=== PATIENT | male | born 1950 | race Caucasian/White ===

== ENCOUNTER 2018-06-29 19:08 | Emergency (ER) | payer OTHER ==
[~2018-06-29] VITALS: Ht 172.7 cm; Wt 68.0 kg
== END 2018-06-29 19:30 | disposition left against medical advice (07) ==
LOC: ER 19:08
DX: Z53.21 Procedure and treatment not carried out due to patient leaving prior to being seen by health care provider (principal)

== ENCOUNTER 2018-08-05 13:51 | Emergency (ER) | payer MEDICARE, OTHER ==
[~2018-08-05] VITALS: Ht 172.7 cm; Wt 63.5 kg
[2018-08-05] MEDS ORDERED: DIVA500EC PO ×2 (14:10)
[2018-08-05] MEDS ORDERED: ERGO400 PO (14:10)
[2018-08-05] MEDS ORDERED: BISA5EC PO (20:14)
== END 2018-08-05 14:39 | disposition left against medical advice (07) ==
LOC: ER 13:51
DX: Z53.21 Procedure and treatment not carried out due to patient leaving prior to being seen by health care provider (principal)

== ENCOUNTER 2018-08-05 17:15 | Emergency (ER) | payer MEDICARE, OTHER ==
[~2018-08-05] VITALS: Ht 172.7 cm; Wt 63.0 kg
[~2018-08-05 17:15] MED LIST: DIVA500EC PO; ERGO400 PO
[2018-08-05 18:45] LABS: BASOPHILS ABSOLUTE AUTO 0.04 K/mm3 (0.00-0.23); BASOPHILS PERCENT AUTO 1 % (0-2); EOSINOPHILS ABSOLUTE AUTO 0.03 K/mm3 (0.00-0.68); EOSINOPHILS PERCENT AUTO 1 % (0-6); Hematocrit 43.5 % (37.0-53.0); Hemoglobin 14.2 g/dL (13.5-17.5); IMMATURE GRAN ABSOLUTE AUTO 0.03 K/mm3 (0.00-0.10); IMMATURE GRAN PERCENT AUTO 1 % (0-1); LYMPHOCYTES ABSOLUTE AUTO 2.72 K/mm3 (0.84-5.20); LYMPHOCYTES PERCENT AUTO 41 % (21-46); MONOCYTES PERCENT AUTO 11 % (4-13); Mean Corpuscular HGB Conc 32.6 g/dL (31.5-36.5); Mean Corpuscular Volume 104 fL (80-100); Mean Platelet Volume 10.5 fL (9.1-12.4); NEUTROPHILS ABSOLUTE AUTO 3.14 K/mm3 (1.96-9.15); NEUTROPHILS PERCENT AUTO 47 % (41-73); Platelet Count 188 K/mm3 (150-400); RDW Coefficient Variation 13.1 % (11.7-14.2); RDW Standard Deviation 50.8 fL (35.1-46.3); Red Blood Cell Count 4.18 M/mm3 (4.30-5.90); White Blood Cell Count 6.66 K/mm3 (4.00-11.30)
[2018-08-05 20:01] LABS: Alanine Aminotransfer (ALT/SGP 37 U/L (12-78); Albumin, Blood 3.7 g/dL (3.4-5.0); Albumin/Globulin Ratio 1.1 (0.8-1.8); Alk Phos 63 U/L (50-136); Anion Gap 8 mmol/L (6-16); Aspartate Aminotrans (AST/SGOT 25 U/L (12-37); Bilirubin, Total 0.4 mg/dL (0.1-1.0); Blood Urea Nitrogen 24 mg/dL (8-24); Bun/Creatinine Ratio 26.5 (12.0-20.0); CO2, Blood 25 mmol/L (21-32); Chloride, Blood 106 mmol/L (98-108); Creatinine, Blood 0.91 mg/dL (0.60-1.20); Globulin, Blood 3.5 g/dL (2.2-4.0); Glomerular Filtration Rate >60 (60-); Glucose, Blood 139 mg/dL (70-99); Potassium, Blood 4.4 mmol/L (3.5-5.5); Sodium, Blood 139 mmol/L (136-145); Total Protein, Blood 7.2 g/dL (6.4-8.2); Valproic Acid 94.3 ug/mL (50.0-100.0)
[2018-08-05] MEDS ORDERED: BISA5EC PO (20:14)
== END 2018-08-05 21:25 | disposition home or self-care (01) ==
LOC: ER 17:15
PROVIDERS: Physician Assistant
DX: G40.909 Epilepsy, unspecified, not intractable, without status epilepticus (principal); Z79.899 Other long term (current) drug therapy; F17.210 Nicotine dependence, cigarettes, uncomplicated
CPT/HCPCS: 36415; 80053; 80164; 85025; 99285

== ENCOUNTER 2018-11-15 23:32 | Inpatient (IN) | payer OTHER, MEDICARE ==
[~2018-11-15] VITALS: Ht 177.8 cm; Wt 67.7 kg
[~2018-11-15 23:32] MED LIST changes: +BISA5EC PO
[2018-11-16] MEDS ORDERED: CITA10S (00:46)
[2018-11-16] MEDS ORDERED: ALBU90OI6 INH (00:46)
[2018-11-16] MEDS ORDERED: DIVA500EC PO (00:47)
[2018-11-16] MEDS ORDERED: ONDA4ODT (00:48)
[2018-11-16] MEDS ORDERED: LORA2 PO (00:48)
--- NOTE | 2018-11-16 04:45 | NUR ---
ASSUMED CARE RECEIVE REPORT FROM SOURAV OROZCO, FROM ER. PT ARRIVE TO ICU VIA STRETCHER WITH BAG OF BELONGINGS, ARMIJO, AND CENTRAL LINE. PT WAS INITIALLY ASLEEP BUT UPON STIMULATION HAS BECAME AGITATED AND HAS BEEN THRASHING AROUND. PT IS NOT RESPONSIVE TO VERBAL STIMULI AND DOES NOT FOLLOW COMMANDS. HE WILL LOCALIZE TO PAIN. PT PLACED IN [facility] RESTRAITNS AT 0430. PT IS NOW SETTLED INTO ICU BED.
[2018-11-16 05:50] LABS: Source, Urine Catheter
[2018-11-16 05:52] LABS: Bilirubin, Urine Neg (Neg); Blood, Urine Neg (Neg); Glucose Qualitative, Urine Neg (Neg); Ketones, Urine 1+ (Neg); Leukocyte Esterase, Urine Neg (Neg); Nitrite, Urine Neg (Neg); Protein, Urine 1+ (Neg); Specific Gravity, Urine 1.005 (1.003-1.022); Urobilinogen, Urine NORM (Normal)
[2018-11-16 06:14] LABS: Appearance, Urine Clear (Clear); Color, Urine Yellow (P-Yellow); U Amphetamine Screen Not Detected; U Barbituate Screen Not Detected; U Benzodiazapine Screen DETECTED; U Buprenorphine Screen Not Detected; U Cannabinoids Screen DETECTED; U Cocaine Screen Not Detected; U Methadone Screen Not Detected; U Methamphetamine Screen Not Detected; U Opiates Screen Not Detected; U Oxycodone Screen Not Detected; U Phencyclidine Screen Not Detected; U Propoxyphene Screen Not Detected
--- NOTE | 2018-11-16 06:45 | NUR ---
UPDATE PT HAS BEEN HYPOTENSIVE. JUAN SAW PT AND HAS PUT IN ORDERS. 2ND LITER SALINE BOLUS INUSING NOW, AND LEVOPHED STARTED AT 3MCG/MIN. MAP > 65. PT IS CURRENTLY ASLEEP AND SNORING, SATING LOW 90'S, OCCASIONAL DROP INTO THE HIGH 80'S. WHEN AWAKE HE MAKES NOISES, BUT NO CLEAR WORDS, AND THRASHES CONSTANTLY. NARCAN WAS GIVEN EARLIER IN NIGHT, BUT SEEMED TO HAVE NO EFFECT. BLOOD PRESSURES HAVE BEEN BETTER (SEE VS).
--- NOTE | 2018-11-16 07:15 | NUR ---
START OF SHIFT NOTE: RECEIVED REPORT FROM GILBERTO MELENDEZ RN, ASSUMED CARE, PATIENT IS AWAKE AND RESTLESS BUT UNABLE TO FOLLOW COMMANDS AND ANSWER QUESTIONS, SPEECH IS GARBLED, CENTRAL LINE IN RIGHT NECK, LUNG SOUNDS TIGHT AND EXPIRATORY WHEEZES HEARD WITHOUT STETHOSCOPE, NSR WITH WPISODES OF SINUS BRADYCARDIA, BOWEL TONES PRESENT AND HYPOACTIVE, ARMIJO CATHETER IN PLACE AND DRAINING CLEAR YELLOW URINE, PATIENT IS IN RETRAINTS D/T PULLING ON LINES AND CORDS, MULTIPLE ANTIBIOTICS INFUSING, ALSO ON LEVOPHED DRIP AT 3, EKG DONE, PATIENT REPOSITIONED, CALL LIGHT IN REACH, WILL CONTINUE TO MONITOR.
[2018-11-16 07:50] LABS: Adenovirus Not Detected (NOT DETECT); Bordetella pertussis Not Detected (NOT DETECT); Chlamydophila pneumoniae Not Detected (NOT DETECT); Coronavirus 229E Not Detected (NOT DETECT); Coronavirus HKU1 Not Detected (NOT DETECT); Coronavirus NL63 Not Detected (NOT DETECT); Coronavirus OC43 Not Detected (NOT DETECT); Human Metapneumovirus Not Detected (NOT DETECT); Human Rhinovirus/Enterovirus Not Detected (NOT DETECT); Influenza A Not Detected (NOT DETECT); Influenza A/2009-H1 Not Detected (NOT DETECT); Influenza A/H1 Not Detected (NOT DETECT); Influenza A/H3 Not Detected (NOT DETECT); Influenza B Not Detected (NOT DETECT); Mycoplasma pneumoniae Not Detected (NOT DETECT); Parainfluenza Virus 1 Not Detected (NOT DETECT); Parainfluenza Virus 2 Not Detected (NOT DETECT); Parainfluenza Virus 3 Not Detected (NOT DETECT); Parainfluenza Virus 4 Not Detected (NOT DETECT); Respiratory Syncytial Virus Not Detected (NOT DETECT)
--- NOTE | 2018-11-16 07:50 | NUR ---
SHIFT SUMMARY PT MORE PURPOSEFUL AT END OF SHIFT RESPONDING (INCOMPREHENSIBLY, JUST SOUNDS) TO VERBAL STIMULI, HOWEVER, STILL DOES NOT FOLLOW ANY COMMANDS. NO OBSERVED SEIZURE ACTIVITY DURING SHIFT. PT IS MOVING ALL EXTREMETIES. CURRENT GTTPS: 2ND LITER OF NS BOLUS INFUSING, LEVOPHED AT 3MCG/MIN, AND ROCEPHIN PB. MAP'S STABLE, HR IS LABILE 40'S-70'S. SAT'S ARE IN 90'S, BUT EXTREEMLY DIMINISHED IN ALL LUNG BULLARD. DAY NURSE AWARE. ARMIJO PATENT AND HANGING TO GRAVITY; 500ML OUT DURING SHIFT; CLEAR YELLOW URINE. NO BM. SKIN OVERALL CDI; SLIGHT ABBRASION ON RIGHT UPPER EYE/EYEBROW. PT REMAINS IN SWB RESTRAINTS. BED LOW AND LOCKED.
--- NOTE | 2018-11-16 09:15 | NUR ---
DR. ZUNIGA WAS CALLED AND UPDATED ON PATIENT CONDITION, DR. COLON, PULMONOLOGY/LAB INSTRUCTOR CONSULTED, PATIENT CONTINUES ON LEVOPHED AT 2, BECOMES EXTREMELY RESTLESS AT TIMES, DR. ZUNIGA IN TO SEE PATIENT, DR. COLON UPDATED ON PATIENT CONDITION.
--- NOTE | 2018-11-16 11:56 | NUR ---
PATIENT CONTINUES TO SLEEP AND SNORE LOUDLY, WHEN REPOSITONED PATIENT AWAKENS BRIEFLY, COUGHS AND GOES BACK TO SLEEP, VSS, TEMP IS DOWN TO 97.3, CALL LIGHT IN REACH, WILL CONTINUE TO MONITOR.
--- NOTE | 2018-11-16 12:21 | NUR ---
FINN LYONS, SOLVENT PLANT OPERATOR WITH THE [facility], CALLED TO INQUIRE ABOUT PATIENT, SHE IS THE TERADATA DEVELOPER FOR THIS PATIENT, UPDATE WAS PROVIDED, SHE WILL BE IN THIS AFTERNOON TO SEE PATIENT.
--- NOTE | 2018-11-16 12:24 | NUR ---
SPOKE WITH MARIANO MITCHELL, RADIOLOGY, WILL POSSIBLY DO LP IN AM D/T LOVENOX ADMINISTRATION.
--- NOTE | 2018-11-16 14:10 | NUR ---
PATIENT DEVELOPED EPISODES OF EXTREME SINUS BRADICARDIA WITH HR DOWN TO 36, PRECEDEX TURNED OFF, DR. COLON NOTIFIED, NO NEW ORDERS RECEIVED, CALL LIGHT IN REACH, WILL CONTINUE TO MONITOR.
--- NOTE | 2018-11-16 14:28 | NUR ---
NICKY VALDEZ, PATIENT'S SUPERVISOR ROAD ADMINISTRATOR, HERE TO VISIT, LEFT HER PHONE NUMBER AND WILL FAX PATIENT'S ADVANCE DIRECTIVE TO BE ON FILE HERE.
--- NOTE | 2018-11-16 16:06 | NUR ---
PATIENT SLIGHTLY MORE AWAKE, ASKED TO HAVE ANKLE RESTRAINTS REMOVED, PATIENT PROMISED TO NOT TRY AND CLIMB OOB, ABX INFUSING, VSS, CALL LIGHT IN REACH, WILL CONTINUE TO MONITOR.
--- NOTE | 2018-11-16 16:12 | NUR ---
PATIENT IS SLOWLY WAKING UP, RESTLESS IN BED, WHEN ASKED WHAT HE WAS DOING, HE STATED "I AM MESSING THINGS UP", BOOSTED UP IN BED, AND REPOSITIONED FOR COMFORT, CALL LIGHT IN REACH, WILL CONTINUE TO MONITOR.
--- NOTE | 2018-11-16 17:47 | NUR ---
PATIENT BECAME AGITATED AND STARTED KICKING, LEG RESTRAINTS REAPPLIED, CALL LIGHT IN REACH, WILL CONTINUE TO MONITOR.
--- NOTE | 2018-11-16 17:53 | NUR ---
SHIFT SUMMARY NOTE: PATIENT GOES IN AND OUT OF SLEEPING AND WAKING MOMENTS, DURING WAKE MOMENTS HE IS MORE ALERT AND TALKATIVE, SPEECH LESS GARBLED, STILL HAS MOMENTS OF AGGRESSIVE BEHAVIOR AND AGITATION, PRECEDEX IS TURNED OFF AT THIS TIME, SO IS THE LEVOPHED, BOTH ARE ON STANDBY, VSS, HR OCCASIONALLY IN UPPER 30'S TO LOWER 40'S, AFEBRILE AT THIS TIME, DENIES PAIN, REPOSITIONED FREQUENTLY BUT CONTINUES TO MOVE TO LEFT SIDE, LUNG SOUNDS ARE LESS TIGHT, PATIENT WAS ABLE TO COUGH UP SOME THIN WHITE SECRETIONS EARLIER DURING THIS SHIFT, ARMIJO CATHETER IN PLACE, DRAINED ABOUT 3L OF CLEAR YELLOW URINE, PATIENT'S IT SYSTEMS ADMINISTRATOR FROM [place] [facility] STOPPED BY AND SAW PATIENT, ALSO OBTAINED ADVANCED DIRECTIVE FROM [place] SINCE PATIENT HAS NO FAMILY PER IT SYSTEMS ADMINISTRATOR, DR. COLON WAS CONSULTED, LP TO BE DONE IN AM, FOR DETAILS SEE SHIFT ASSESSMENT DOCUMENTATION AND NURSES NOTES, CALL LIGHT IN REACH, WILL CONTINUE TO MONITOR AND GIVE REPORT TO ONCOMING RIB BENDER.
--- NOTE | 2018-11-16 19:31 | NUR ---
[place] of Care: Patient sleeping, easily roused via verbal stimuli. Oriented to self, confused to time, place, reason for admission. Following simple commands, but slightly restless in bed when awake, attempting to place legs over side of bed. Four-point soft restraints in place, day shift RN reports patient frequently attempting to get out of bed. Cid cath patent and intact, draining clear yellow urine. Central line to rt IJ patent and intact, infusing TKO, NS @ 100ml/hr, and Abx without difficulty. Denies pain, discomfort, SOB, or dyspnea. VSS, O@- 98-100% on 2L/NC. Will continue to monitor for pain, comfort, safety. Will D/C restraints if indicated.
[2018-11-17 04:16] LABS: Hematocrit 32.8 % (37.0-53.0); Hemoglobin 10.9 g/dL (13.5-17.5); Mean Corpuscular HGB 34.2 pg (26.0-34.0); Mean Corpuscular HGB Conc 33.2 g/dL (31.5-36.5); Mean Corpuscular Volume 103 fL (80-100); Mean Platelet Volume 10.7 fL (9.1-12.4); Platelet Count 106 K/mm3 (150-400); RDW Coefficient Variation 12.7 % (11.7-14.2); RDW Standard Deviation 47.5 fL (35.1-46.3); Red Blood Cell Count 3.19 M/mm3 (4.30-5.90); White Blood Cell Count 5.94 K/mm3 (4.00-11.30)
[2018-11-17 04:32] LABS: International Normalized Ratio 1.15
[2018-11-17 04:39] LABS: Alanine Aminotransfer (ALT/SGP 11 U/L (12-78); Albumin, Blood 2.6 g/dL (3.4-5.0); Alk Phos 44 U/L (50-136); Anion Gap 6 mmol/L (6-16); Aspartate Aminotrans (AST/SGOT 25 U/L (12-37); Bilirubin, Total 0.4 mg/dL (0.1-1.0); Blood Urea Nitrogen 15 mg/dL (8-24); Bun/Creatinine Ratio 15.9 (12.0-20.0); CO2, Blood 25 mmol/L (21-32); Calcium, Blood 7.7 mg/dL (8.5-10.1); Chloride, Blood 115 mmol/L (98-108); Creatinine, Blood 0.95 mg/dL (0.60-1.20); Globulin, Blood 2.6 g/dL (2.2-4.0); Glomerular Filtration Rate >60 (60-); Glucose, Blood 72 mg/dL (70-99); Potassium, Blood 3.6 mmol/L (3.5-5.5); Sodium, Blood 146 mmol/L (136-145); Total Protein, Blood 5.2 g/dL (6.4-8.2)
[2018-11-17 04:57] LABS: BAND PERCENT MAN 6 % (0-8); BASOPHILS ABSOLUTE MAN 0.05 K/mm3 (0.00-0.23); BASOPHILS PERCENT MAN 1 % (0-2); EOSINOPHILS ABSOLUTE MAN 0.05 K/mm3 (0.00-0.68); EOSINOPHILS PERCENT MAN 1 % (0-6); LYMPHOCYTES ABSOLUTE MAN 1.48 K/mm3 (0.84-5.20); LYMPHOCYTES PERCENT MAN 25 % (21-46); MONOCYTES ABSOLUTE MAN 0.83 K/mm3 (0.16-1.47); MONOCYTES PERCENT MAN 14 % (4-13); SEG NEUTROPHILS PERCENT MAN 53 % (41-73); TOTAL CELLS COUNTED 100
--- NOTE | 2018-11-17 06:11 | NUR ---
Shift Summary: Patient slept for majority of shift. Precedex gtt turned on at approx 2100, titrated between 0.2-0.4mcg/kg/min, then placed on stand-by at approx 2300hr. Patient continues to be confused, but becoming less agitated/restless, and more cooperative with staff when awake. Bilateral wrist restraints remain in place r/t confusion, concern for pulling out central line to rt IJ, and/or getting out of bed. Levophed gtt turned on at approx 2230hr, titrated between 1-2mcg/min then placed on stand-by at approx 0300hr, VS/BP stable throughout remainder of shift. Central line to rt IJ remains patent and intact. Cid cath remains patent and intact, draining light yellow, clear urine. Patient adjusting own position in bed, but requires some assistance to get comfortable. Sleeping at this time. Will continue to monitor until report to day shift RN.
--- NOTE | 2018-11-17 07:15 | NUR ---
START OF SHIFT NOTE: RECEIVED REPORT FROM CARLO MACE RN, ASSUMED CARE, PATIENT IS AWKAE AND ASKED "CAN I GO NOW", ORIENTED TO SELF, KNOWS THAT HE IS IN THE HOSPITAL BUT DID NOT KNOW TOWN, CONTINUES TO BE IN BILATERAL WRIST RESTRAINTS D/T PULLING ON LINES AND CORDS, PATIENT HAS MOMENTS WHERE HE IS COMPLETELY ALERT AND THEN MOMENTS LATER HE IS COMPLETELY CONFUSED AGAIN, YELLING OUT AT TIMES, BUT WHEN ASKED WHAT IS NEEDED DOES NOT KNOW WHY, LUNG SOUNDS ARE DIMINISHED, DENIES PAIN, AFEBRILE, SINUS BRADICARDIA WITH HR IN 40'S TO 50'S, BOWEL TONES ARE PRESENT AND HYPOACTIVE, ARMIJO CATHETER WITH TEMP PROBE IN PLACE, DRAINING CLEAR YELLOW URINE, SKIN C/D/I, POSSIBLE LP TODAY, CALL LIGHT IN REACH, WILL CONTINUE TO MONITOR.
--- NOTE | 2018-11-17 07:20 | NUR ---
START OF SHIFT NOTE: RECEIVED REPORT FROM CARLO MACE, RN, ASSUMED CARE, PATIENT IS AWAKE, ALERT AND ORIENTED, WATCHING TV, ON HIFLO 4L NC, DENIES PAIN, AFEBRILE, RECEIVING BREATHING TREATMENT, RT IN TO DRAW ABG'S, DR. ADAMES IN TO SEE PATIENT, NEW ORDERS RECEIVED, PATIENT IS RESTING COMFORTABLY, LUNG SOUNDS DIMINISHED, ST WITH HR IN 90'S TO LOW 100'S, BLOOD PRESSURES SLIGHTLY ELEVATED IN 170'S, BOWEL TONES HYPOACTIVE, PATIENT REQUESTED MILK OF MAGNESIA WITH AM MEDS., ARMIJO CATHETER IN PLACE, DRAINING DARK YELLOW URINE, PATIENT WILL BE TRANSFERRED TO PCU 16 LATER THIS AM, CALL LIGHT IN REACH, WILL CONTINUE TO MONITOR.
--- NOTE | 2018-11-17 09:18 | NUR ---
DR. COLON IN TO SEE PATIENT, ORDERS RECEIVED TO REMOVE CENTRAL LINE AND START PIV'S, ALSO SEDATION ORDERED FOR PENDING LUMBAR PUNCTURE, CALLED RADIOLOGY, AND SPOKE WITH MARIANO MITCHELL ABOUT APPROXIMATE TIME FOR PROCEDURE, SHE STATED THAT IT WILL BE EITHER AT 1100 AM OR 2 PM, WILL KEEP ME UPDATED, PATIENT WAS NOTIFIED ABOUT PROCEDURE, BUT UNABLE TO GRASP SITUATION AT THIS TIME.
--- NOTE | 2018-11-17 09:23 | NUR ---
ATTEMPTED TO CALL RAHEEM BLUE, AT THE [facility], WHO TAKES CARE OF THE PATIENT, SHE WAS NOT AT HER DESK, LEFT A MESSAGE WITH PAOLO, WHO WILL NOTIFY HER TO CALL THIS RN.
--- NOTE | 2018-11-17 10:29 | NUR ---
PER CALL FROM RADIOLOGY, LUMBAR PUNCTURE WILL BE DONE AT 1400 HOURS TODAY.
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
--- NOTE | 2018-11-17 13:12 | NUR ---
PATIENT CONTINUES TO BE CONFUSED AND IS SHOUTING OUT, YELLING AT TIMES "GET ME OUT OF HERE", FORGETFUL ABOUT INSTRUCTIONS WHY HE IS HERE, MUSIC THERAPY HERE TO PLAY IN PATIENT ROOM.
--- NOTE | 2018-11-17 13:40 | NUR ---
PATIENT RECEIVED 2 MG ATIVAN IV TO PREPARE FOR LUMBAR PUNCTURE, PROCEDURE TO BE PERFORMED ABOUT 1400 HOURS.
--- NOTE | 2018-11-17 14:54 | NUR ---
PATIENT WAS TAKEN TO RADIOLOGY AT 1355 VIA BED AND ON HEART MONITOR, PATIENT HAD BEEN PRE-MEDICATED WITH 2 MG ATIVAN AND 50 MCG OF FENTANYL AND WAS CALM AND COOPERATIVE, ARRIVED AT RADIOLOGY, HARD RESTRAINTS WERE UNLOCKED FROM UPPER AND LOWER EXTREMITIES AND PATIENT WAS MOVED TO RADIOLOGY TABLE AND PLACED IN A PRONE POSITION, LUMBAR PUNCTURE WAS INITIATED, CONSENT WAS SIGNED BY TWO PHYSICIANS D/T PATIENT'S CONFUSION AND NO FAMILY AVAILABLE, PATIENT RECEIVED AN ADDITIONAL 4 MG OF ATIVAN IMMEDIATELY PRIOR TO PROCEDURE, PATIENT FELL ASLEEP AND WAS SNORING DURING PROCEDURE, AFTER LP WAS DONE, PATIENT WAS MOVED BACK TO HOSPITAL BED AND PLACED IN A SUPINE POSITIONE, HARD LOCKED RESTRAINTS WERE APPLIED TO ALL 4 EXTREMITIES, PATIENT RETURNED TO ROOM VIA BED AND PLACED ON MONITOR, POSITIONED FOR COMFORT, CALL LIGHT IN REACH, WILL CONTINUE TO MONITOR.
[2018-11-17 15:09] LABS: Glucose, CSF 38 mg/dL (40-70)
[2018-11-17 15:17] LABS: RBC Count, CSF 80 /mm3 (0-0); WBC Count, CSF 1 /mm3 (0-5)
[2018-11-17 15:18] LABS: Appearance, CSF Clear (Clear); Color, CSF No Color (No Color)
[2018-11-17 17:03] LABS: Lymphocytes, CSF 62 % (40-80); Monocytes, CSF 8 % (15-45); Neutrophils, CSF 30 % (0-6)
--- NOTE | 2018-11-17 17:57 | NUR ---
SHIFT SUMMARY NOTE: PATIENT CONTINUES TO BE CONFUSED AND EXTREMELY RESTLESS, NOW IN 4 POINT HARD RESTRAINTS D/T EXTREME COMBATIVENESS, AGITATION, STARTED KICKING NURSING PERSONNEL, CODE VASYL HAD TO BE CALLED, PATIENT RECEIVED MULTIPLE DOSES OF ATIVAN AND ONE DOSE OF FENTANYL, WAS TAKEN TO IMAGING FOR LUMBAR PUNCTURE, SUCCESSFUL, PATIENT WAS RETURNED TO ROOM, RECEIVED ZYPREXA IM FOR CONTINUOUS RESTLESSNESS, FOR DETAILS SEE SHIFT ASSESSMENT DOCUMENTATION AND NURSES NOTES, CALL LIGHT IN REACH, WILL CONTINUE TO MONITOR, AND GIVE REPORT TO ONCOMING EVAPORATOR HELPER.
--- NOTE | 2018-11-17 22:40 | NUR ---
[place] of Care: Care assumed at 1900hr. Patient sleeping, easily roused to verbal stimuli. Continues to be confused, and speaks incomprehensible sentenced. Some agitation when awake but able to re-direct. 4-point tuff-cuff restraints in place at shift change. Day shift RN reports patient was able to get out of soft restraints. Patient also continues to try to get out of bed when awake. High fall risk r/t confusion and weakness. Will continue to monitor and downgrade restraints as indicated. X1 peripheral IV to SHANNA, found to be infiltrated at shift change. Several attempts by multiple staff members to place new IV, but all new starts continually infiltrated. Patient currently has no IV access. Call placed to Dr. Ravi r/t to no IV access. Received orders/instructions to D/c several IV abx, LR, give depakote PO (if able), and continue to attempt peripheral IV access. Dr. Ravi does not wish to place another central line as it is not indicated for this patient. This nurse does not feel patient is alert/oriented enough to take PO medications at this time. Will continue to attempt peripheral IV access. Will continue to monitor for pain, safety, comfort.
[2018-11-18 03:23] LABS: BASOPHILS ABSOLUTE AUTO 0.03 K/mm3 (0.00-0.23); BASOPHILS PERCENT AUTO 1 % (0-2); EOSINOPHILS ABSOLUTE AUTO 0.04 K/mm3 (0.00-0.68); EOSINOPHILS PERCENT AUTO 1 % (0-6); Hematocrit 34.5 % (37.0-53.0); Hemoglobin 11.6 g/dL (13.5-17.5); IMMATURE GRAN ABSOLUTE AUTO 0.01 K/mm3 (0.00-0.10); IMMATURE GRAN PERCENT AUTO 0 % (0-1); LYMPHOCYTES PERCENT AUTO 35 % (21-46); MONOCYTES ABSOLUTE AUTO 0.57 K/mm3 (0.16-1.47); MONOCYTES PERCENT AUTO 13 % (4-13); Mean Corpuscular HGB 34.4 pg (26.0-34.0); Mean Corpuscular HGB Conc 33.6 g/dL (31.5-36.5); Mean Corpuscular Volume 102 fL (80-100); Mean Platelet Volume 10.7 fL (9.1-12.4); NEUTROPHILS PERCENT AUTO 50 % (41-73); Platelet Count 99 K/mm3 (150-400); RDW Coefficient Variation 12.4 % (11.7-14.2); RDW Standard Deviation 47.3 fL (35.1-46.3); Red Blood Cell Count 3.37 M/mm3 (4.30-5.90); White Blood Cell Count 4.25 K/mm3 (4.00-11.30)
[2018-11-18 03:41] LABS: Alanine Aminotransfer (ALT/SGP 17 U/L (12-78); Albumin, Blood 2.8 g/dL (3.4-5.0); Alk Phos 47 U/L (50-136); Anion Gap 7 mmol/L (6-16); Aspartate Aminotrans (AST/SGOT 26 U/L (12-37); Bilirubin, Total 0.5 mg/dL (0.1-1.0); Blood Urea Nitrogen 13 mg/dL (8-24); CO2, Blood 27 mmol/L (21-32); Calcium, Blood 8.2 mg/dL (8.5-10.1); Chloride, Blood 110 mmol/L (98-108); Creatinine, Blood 0.93 mg/dL (0.60-1.20); Globulin, Blood 2.9 g/dL (2.2-4.0); Glomerular Filtration Rate >60 (60-); Glucose, Blood 58 mg/dL (70-99); Potassium, Blood 3.3 mmol/L (3.5-5.5); Sodium, Blood 144 mmol/L (136-145); Total Protein, Blood 5.7 g/dL (6.4-8.2)
--- NOTE | 2018-11-18 06:14 | NUR ---
Shift Summary: Patient slept for majority of shift. Continues to be confused when awake. At times, calm and cooperative with staff, thankful for care provide. Patient also agitated at times, and attempting to climb out of bed. Unable to gain IV access this shift (see assumption note), Dr. Ravi made aware this morning. Plan for day shift staff to potentially place power-glide. Restraints changed from tuff-cuffs x4 to soft x4. Cid cath remains patent and intact, draining light yellow clear urine. Will continue to monitor until report to day shift RN.
--- NOTE | 2018-11-18 07:00 | NUR ---
REC'D BEDSIDE REPORT FROM ERNESTO MATOS AND NOW ASSUMING CARE OF PT.
--- NOTE | 2018-11-18 07:21 | NUR ---
AM ASSESSMENT: PT RESTING/CALM WHEN UNDSISTURBED, HOWEVER, HAS PERIODS WHERE PT WAKES UP FOR SHORT PERIODS OF TIME AND BECOMES RESTLESS AND PULLS ON CORDS DESPITE BILATERAL SOFT WRIST RESTRAINTS. ATIVAN USED ON NOC FOR RESTLESSNESS/AGGITATION. BILATERAL WRIST RESTRAINTS REMAIN IN PLACE FOR PT SAFETY. PT ORIENTED TO SELF ONLY. WILL FOLLOW SIMPLE COMMANDS AND ANSWER SIMPLE YES/NO QUESTIONS SLOWLY, BUT APPROPRIATELY. PT IS FAIRLY REDIRECTABLE AT THIS TIME. LUNGS ARE CLEAR BUT DIMINISHED IN THE BILATERAL BASES. SATS UPPER 90% RANGE ON RA. HR REGULAR, SB-MID 40'S RANGE. NO IV ACCESS R/T TO INFILTRATIONS/DIFFICULT IV ACCESS. WILL ATTEMPT A POWERGLIDE IF ABLE TO DO SO WITH INTERMITTENT AGGITATION. ABD SOFT/ROUND/NON-TENDER TO PALPATION. BT'S HYPOACTIVE X4 QAUDS. PT REMAINS NPO AT THIS TIME.
--- NOTE | 2018-11-18 07:45 | NUR ---
POWERGLIDE PLACED: PT NEEDEING POWERGLIDE R/T DIFFICULT IV ACCESS AND MULTIPLE IV INFILTRATIONS. ATTEMPTED TWICE IN LT UA WITHOUT SUCCESS (UNABLE TO THREAD CATHETHER COMPLETELY. 3RD ATTEMPT POWERGLIDE PLACED WITHOUT DIFFICULTY. FLUSHES AND DRAWS BLOOD EASILY.
--- NOTE | 2018-11-18 08:00 | NUR ---
DR ZUNIGA IN TO ASSESS PT. UPDATED ON PT'S CURRENT STATUS. SEE NEW ORDERS.
--- NOTE | 2018-11-18 09:45 | NUR ---
PT UPDATE: PT WITH INCREASING RESTLESSNESS/AGGITATION. PT CONTINUALLY PULLING ON VITAL LINES. BRAB, PCT SITTING AT THE BEDSIDE TO KEEP PT SAFE AT THIS TIME. PT MEDICATION WITH ATIVAN. WILL ASSESS FOR EFFECTIVENESS.
--- NOTE | 2018-11-18 10:37 | NUR ---
PT UPDATE: PT REMAINS RESTLESS AND CONTINUALLY PULLING AT LINES. THIS RN SITTING AT BEDSIDE WITH PT. MEDCIATED WITH XYPREXA PER ORDERS. WILL CONTINUE TO USE PRIMARILY ZYPREXA PER DR LACY.
--- NOTE | 2018-11-18 11:11 | NUR ---
PT UPDATE: PT MEDICATE WITH ZYPREXIA PER ORDERS. PT CONTINUES TO PULL AT VITAL LINE AND NEEDS CONSTANT REDIRECTION.
--- NOTE | 2018-11-18 11:14 | NUR ---
CALLED LAB TO CONFIRM THEY CAN RUN CSF PANEL ON SPECIMEN PROVIDED FROM PT'S LUMBAR PUNCTURE 11/17.
--- NOTE | 2018-11-18 11:57 | NUR ---
UPDATED PT'S HOMELESS ICE HOUSE SUPERVISOR SHAYY BLEU AND OBTAINED MEDICAL HX FROM HER. FAXED REQUEST FOR UPDATED MEDICATIONS/HX.
[2018-11-18 13:05] LABS: Cryptococcus Neoformans/Gattii Not Detected (NOT DETECT); Enterovirus Not Detected (NOT DETECT); Escherichia Coli K1 Not Detected (NOT DETECT); Haemophilus Influenza Not Detected (NOT DETECT); Herpes Simplex Virus 1 Not Detected (NOT DETECT); Herpes Simplex Virus 2 Not Detected (NOT DETECT); Human Herpesvirus 6 Not Detected (NOT DETECT); Human Parechovirus Not Detected (NOT DETECT); Listeria Monocytogenes Not Detected (NOT DETECT); Neisseria Meningitidis Not Detected (NOT DETECT); Streptococcus Agalactiae Not Detected (NOT DETECT); Streptococcus Pneumoniae Not Detected (NOT DETECT); Varicella Zoster Virus Not Detected (NOT DETECT)
--- NOTE | 2018-11-18 17:59 | NUR ---
PT UPDATE: PT IS AWAKE AND HAS INCREASING AGITATION. CONTINUES TO TRY TO GET OOB WITHOUT ASSIST AND AT TIMES ABLE TO GET OUT OF RESTRAINTS. REMAINS IN BILATERAL WRIST RESTRAINTS AND YUAN VEST FOR SAFETY.
--- NOTE | 2018-11-18 19:21 | NUR ---
REPORTED OFF TO ERNESTO MACIAS WHOM IS ASSUMING CARE OF PT.
--- NOTE | 2018-11-18 20:06 | NUR ---
ASSUMED CARE RECIEVED REPORT FROM PERI. PT IS CALM AT THE MOMENT, AND ORIENTED TO SELF AND PLACE, BUT INCONSISTENT MENTATION AND SLIGHTLY CONFUSED. NO GTTPS INFUSING. YUAN ON. VITALS STABLE, HR ON LOW END BUT ASYMPTOMATIC. BED LOW AND LOCKED, CALL LIGHT WITHIN REACH.
--- NOTE | 2018-11-18 21:38 | NUR ---
UDPATE PT GOES BACK AND FORTH FROM SLEEPING AND QUIET, TO ANXIOUS, AGITATED, AND ATTEMPTING TO CRAWL OUT OF BED. HAS NOT ATTEMPTED TO PULL POWERGLIDE, OF YET. YUAN REMAINS ON. LAST 40 MINUTES PT HAS BEEN NONSTOP ATTEMPTING TO FIGHT YUAN VEST AND GET OUT OF BED; GAVE 1MG ATIVAN, TO SEE IF THAT WOULD HELP HIM, NEXT DOSE OF ZYPREXA NOT DUE TILL 0000.
--- NOTE | 2018-11-18 22:51 | NUR ---
UPDATE IT IS HARD TO UNDERSTAND THE PT WHEN HE SPEAKS, BUT SEEMS TO BE DISORIENTED. SOMETIMES IT SEEMS LIKE HE KNOWS HES IN A HOSPITAL, ASKING ABOUT WHAT MEDICATIONS I AM GIVING HIM. BUT CONTINUES TO CRAWL OUT OF BED, MUMBLE, AND MAKE INCOMPREHENSIBLE STATEMENTS. BECOMES AGITATED VERY QUICKLY IF TOUCHED OR MESSED WITH. CURRENTLY (LAST 15 MINS) SLEEPING, QUIET, AND NOT MOVING.
--- NOTE | 2018-11-19 01:15 | NUR ---
UPDATE RUMA DIEGO (BOOKING OFFICER) COMPLETED MED. REC. PT SOUND ASLEEP; NO CHANGES AT THIS TIME.
[2018-11-19 03:29] LABS: BASOPHILS ABSOLUTE AUTO 0.02 K/mm3 (0.00-0.23); BASOPHILS PERCENT AUTO 1 % (0-2); EOSINOPHILS ABSOLUTE AUTO 0.05 K/mm3 (0.00-0.68); EOSINOPHILS PERCENT AUTO 2 % (0-6); Hematocrit 34.9 % (37.0-53.0); Hemoglobin 11.6 g/dL (13.5-17.5); IMMATURE GRAN ABSOLUTE AUTO 0.02 K/mm3 (0.00-0.10); IMMATURE GRAN PERCENT AUTO 1 % (0-1); LYMPHOCYTES ABSOLUTE AUTO 0.96 K/mm3 (0.84-5.20); LYMPHOCYTES PERCENT AUTO 35 % (21-46); MONOCYTES ABSOLUTE AUTO 0.44 K/mm3 (0.16-1.47); MONOCYTES PERCENT AUTO 16 % (4-13); Mean Corpuscular HGB 34.1 pg (26.0-34.0); Mean Corpuscular HGB Conc 33.2 g/dL (31.5-36.5); Mean Corpuscular Volume 103 fL (80-100); NEUTROPHILS ABSOLUTE AUTO 1.28 K/mm3 (1.96-9.15); NEUTROPHILS PERCENT AUTO 46 % (41-73); Platelet Count 86 K/mm3 (150-400); RDW Coefficient Variation 12.5 % (11.7-14.2); RDW Standard Deviation 47.1 fL (35.1-46.3); White Blood Cell Count 2.77 K/mm3 (4.00-11.30)
[2018-11-19 03:43] LABS: Anion Gap 5 mmol/L (6-16); Blood Urea Nitrogen 15 mg/dL (8-24); Bun/Creatinine Ratio 15.1 (12.0-20.0); CO2, Blood 29 mmol/L (21-32); Calcium, Blood 8.2 mg/dL (8.5-10.1); Chloride, Blood 111 mmol/L (98-108); Creatinine, Blood 0.99 mg/dL (0.60-1.20); Glomerular Filtration Rate >60 (60-); Glucose, Blood 66 mg/dL (70-99); Magnesium, Blood 1.9 mg/dL (1.6-2.4); Phosphorus, Blood 3.4 mg/dL (2.5-4.9); Potassium, Blood 4.2 mmol/L (3.5-5.5); Sodium, Blood 145 mmol/L (136-145)
--- NOTE | 2018-11-19 04:32 | NUR ---
UPDATE INCREASING RESTLESS THROUGHOUT NIGHT. PT CONSTANTLY TRYING TO WIGGLE OUT OF YUAN. PULLING PULSE OX OFF, PICKING AT POWERGLIDE, RIPPING OF ATTENDS, AND ATTEMPTING TO CRAWL OUT OF BED; LEGS WILL END UP OFF BED OVER AND OVER AGAIN. PT WILL GET AGITATED WHEN YOU ATTEMPT TO REPOSITION HIM. GAVE 5 MG OF ZYPREXIA - AND HAS BEEN QUIET SLEEPING THE LAST 15 MINUTES. PT MAY HAVE A DEGREE OF ANDREW. HE SNORES WHEN HE SLEEPS AND DE-SAT'S INTO THE LOW 80'S. WHILE ASLEEP I PLACED A NC @ 2LPM ON HIM, NOT SURE IF THIS WILL STAY ON HIM (WITHOUT USING WRIST RESTRAINTS) BUT HAS REMAINED IN PLACE FOR TIME BEING. SAT'S ARE NOW HIGH 90'S
--- NOTE | 2018-11-19 06:31 | NUR ---
SHIFT SUMMARY NO ACUTE CHANGES OVERNIGHT. PT REMAINS CONFUSED, AND SLIGHTLY DISORIENTED (NOT BASELINE ACCORDING TO SWITCH HOUSE OPERATOR, NICKY VALDEZ. PT CAN BECOME AGITATED WHEN STIMULATED, BUT HAS REMAINED RELATIVELY CALM. PT GOT SOME SLEEP, BUT NOT A LOT, REMAINED RESTLESS (SEE OTHER NOTES). PT USUALLY VERY AGREEABLE AND FRIENDLY WITH STAFF (AT [facility]), PER SWITCH HOUSE OPERATOR. PT MAY HAVE A DEGREE OF ANDREW, AND WILL SNORE AND DE-SAT; PLACED ON NC, BUT DIDN'T REMAIN ON HIM FOR LONG (PULLED IT OFF). HE WAS SAT'ING IN MID 90'S AFTER THAT SO I LEFT IT OFF. PT REQUIRES ATTENDS, BECAUSE HE DOES NOT KNOW TO LET US KNOW IF HE NEEDS TO 'USE THE BATHROOM', HE HAD SEVERAL INCONTINENT VOIDS, AND 'SMEARS'. BED LOW AND LOCKED, PT REMAINS IN YUAN BUT NO WRIST RESTRAINTS.
--- NOTE | 2018-11-19 08:00 | NUR ---
Recieved report from Griselda OROZCO. Patient laying in bed supine twisting around in bed, he has bry inplace. He awakens to verbal stimuli and is cooperative most of time but gets frustrated easily. He is on RA and sats 95-97%. He is incontinent of urine and stool and has attends in place. He has PowerGlide to SHANNA dressing intact and site WNL's and is flushed and SL'd. He is currently resting.
--- NOTE | 2018-11-19 09:32 | NUR ---
No significant changes with patient. Awakened him and he stated not hungry yet. He is resting again and is cooperative. Remains on RA. See VSS
[2018-11-19 10:57] LABS: Base Excess Venous 2.6 mmol/L; Bicarbonate Venous 26.3 mmol/L (24.0-30.0); PCO2 Venous 42.8 mmHg (38-42); PO2 Venous 94.1 mmHg (38-42); pH Blood Venous 7.41 (7.34-7.37)
--- NOTE | 2018-11-19 12:14 | NUR ---
PT worked with patient and is up in chair. He has been rest most of day and awakes intermitently some times cooperative and other times frustrated and mad. He remains RA. had short talk with him about his meds and was very clear and then some confusion. VSS.
--- NOTE | 2018-11-19 12:34 | NUR ---
ECHOCARDIOGRAM COMPLETE
--- NOTE | 2018-11-19 15:17 | NUR ---
Patient has been sleeping most of shift. Echo by and finished procedure. He [id number] to be cooperative with his care and bry remains on. He attempted to eat and feel asleep while eating so took food away so he did not aspirate. VSS. RA and sats 97%.
--- NOTE | 2018-11-19 15:30 | NUR ---
Patient awakened and assisted him to walk to bathroom and he a liquid dirrhea. Helped him get cleaned and applied new attends and he went back to bed and is currently sleeping. He remains on RA and sats mid to upper 90%. He has been cooperative with care.
--- NOTE | 2018-11-19 18:27 | NUR ---
Helped patient some oral care and he is sitting up in bed attempting to eat. He has been cooperative with care. He asks when going home and is anxious at times about that. He has been very tired all day and has been sleeping most of shift with intermitent times of awakening. VSS. He remains on RA and sats well.
--- NOTE | 2018-11-19 19:30 | NUR ---
ASSUMED CARE RECIEVED REPORT FROM CRESCENCIO. PT IS IN BED, AND JUST AWOKE FROM SLEEPING. PT IS SPEAKING FAIRLY CLEARLY. YUAN VEST REMAINS OFF AT THIS MOMENT, WITH BED ALARM ON. POWERGLIDE TO SHANNA, SITE IS WNL. VITALS STABLE AT THIS TIME. BED LOW AND LOCKED.
--- NOTE | 2018-11-19 23:10 | NUR ---
UPDATE NO ACUTE CHANGES. NO NEED FOR RESTRAINTS, PT HAS BEEN QUIET AND ASLEEP THROUGHOUT OUT NIGHT SO FAR. HE GOT UP EARLIER TO PEE, BED ALARM WENT OFF, I WENT INTO ROOM AND HAD HIM STAND AND USE URINAL. HE PEE'D ON FLOOR BEFORE I COULD GET URINAL IN PLACE. ENV. SERVICES CLEANED UP ROOM. HE GETS FRUSTRATED EASILY WHEN YOU NEED TO DO BASIC CARE.
--- NOTE | 2018-11-20 06:08 | NUR ---
SHIFT SUMMARY NO ACUTE CHANGES OVERNIGHT. PT ASLEEP THROUGHOUT MAJORITY OF NIGHT. NO RESTRAINTS NEEDED AFTER DC'D, NO SEDATION NEEDED. TOWARDS END OF SHIFT, PT ATTEMPTED TO GET OUT OF BED ONCE, BUT ONCE REDIRECTED AND REASSURED IT WAS FINE. HE FORGETS EARLIER CONVERSATIONS, AND ASKS SIMILAR QUESTIONS OVER AGAIN. WANTS TO LEAVE, AND IS CONCERNED ABOUT HIS WALLET (IN HIS PANTS POCKET IN PERSONAL BELONGINGS). PT NOTIFIED NURSING STAFF THAT HE HAD TO GO ONCE, AND PEED INTO URINAL (AND FLOOR), BUT LATER HE FAILED TO LET US KNOW HE HAD A LARGE LIQUIDY BM IN ATTENDS. PT STILL CONFUSED, AND GETS AGITATED AND FRUSTRATED WHEN WE STOP HIM FROM GETTING OUT OF BED, AND CLEAN HIM UP. CURRENTLY BACK ASLEEP, BED LOW AND LOCKED.
--- NOTE | 2018-11-20 07:32 | NUR ---
Recieved report from Griselda OROZCO. Patient in room supine in bed with HOB at 20 degrees getting breathing treatment. He has very short term memory and asks about wallet constantly even after showing it to him. He is also focused on taking his own sizure medication even though you tell him he is getting same medication IV. He is on RA and sats in the mid to high 90%'s. He has Power [place] to JARRET dressing intact and site WNL's and is SL and flushed. He wears attends for incontinent of stool and urine and at times can tell you when he needs to go. He remains out of restraints and has tab alarm attached. He is trying to rest after giving him warm blankets.
[2018-11-20 08:07] LABS: Anion Gap 6 mmol/L (6-16); BASOPHILS ABSOLUTE AUTO 0.02 K/mm3 (0.00-0.23); BASOPHILS PERCENT AUTO 1 % (0-2); Blood Urea Nitrogen 20 mg/dL (8-24); CO2, Blood 28 mmol/L (21-32); Calcium, Blood 8.1 mg/dL (8.5-10.1); Chloride, Blood 111 mmol/L (98-108); Creatinine, Blood 1.05 mg/dL (0.60-1.20); EOSINOPHILS ABSOLUTE AUTO 0.04 K/mm3 (0.00-0.68); EOSINOPHILS PERCENT AUTO 2 % (0-6); Glomerular Filtration Rate >60 (60-); Glucose, Blood 111 mg/dL (70-99); Hematocrit 34.9 % (37.0-53.0); Hemoglobin 11.6 g/dL (13.5-17.5); IMMATURE GRAN ABSOLUTE AUTO 0.01 K/mm3 (0.00-0.10); IMMATURE GRAN PERCENT AUTO 0 % (0-1); LYMPHOCYTES ABSOLUTE AUTO 0.86 K/mm3 (0.84-5.20); LYMPHOCYTES PERCENT AUTO 37 % (21-46); MONOCYTES ABSOLUTE AUTO 0.48 K/mm3 (0.16-1.47); MONOCYTES PERCENT AUTO 21 % (4-13); Mean Corpuscular HGB 33.8 pg (26.0-34.0); Mean Corpuscular HGB Conc 33.2 g/dL (31.5-36.5); Mean Corpuscular Volume 102 fL (80-100); NEUTROPHILS ABSOLUTE AUTO 0.93 K/mm3 (1.96-9.15); NEUTROPHILS PERCENT AUTO 40 % (41-73); Potassium, Blood 3.5 mmol/L (3.5-5.5); RDW Coefficient Variation 12.6 % (11.7-14.2); RDW Standard Deviation 47.2 fL (35.1-46.3); Red Blood Cell Count 3.43 M/mm3 (4.30-5.90); Sodium, Blood 145 mmol/L (136-145); White Blood Cell Count 2.34 K/mm3 (4.00-11.30)
[2018-11-20 08:08] LABS: Mean Platelet Volume 11.1 fL (9.1-12.4); Platelet Count 87 K/mm3 (150-400)
--- NOTE | 2018-11-20 09:30 | NUR ---
Patient up to chair and is eating breakfast by self. He continues to have short term memory problems. We discuss reasons for admission and he communicates he understand and ten minutes later we are having same conversation.Tab alram in place. I walked to bathroom with holding assist to urinat and slightly unstable.
--- NOTE | 2018-11-20 12:26 | NUR ---
Patient many times stated he wanted to go home to [facility] and we talked and agreed to wait for [facility] assistance and around 1200 he stated that he was not waiting any longer and was going home. Called [facility] and talked with DONNA Greer to see if there was assistance malik to get home and he stated just to release him and let him go home by self after explaining he was not physically stable. Notified Dr Ruby and aid helpped him get dressed and wheeled him to the bench out front. Recieved permission from [employer] supervisor to call for cab to assure he made home safe and was given permission. Pulled [employer] out intact and wrapped gauze with coban. Patient ate 100% of lunch prior to leaving.
[2018-11-21 13:06] LABS: HSV-1 DNA Negative (Negative); HSV-2 DNA Negative (Negative)
== END 2018-11-20 12:20 | disposition left against medical advice (07) | DRG 871 ==
LOC: ER 23:32 → ICUW 11-16 04:12 → ICUE 11-16 04:12
PROVIDERS: Internal Medicine Critical Care Medicine; Internal Medicine Pulmonary Disease; ADMIT Internal Medicine
PROC: 009U3ZX Drainage of Spinal Canal, Percutaneous Approach, Diagnostic (ICD-10-PCS; principal; 2018-11-17)
PROC: B01B1ZZ Fluoroscopy of Spinal Cord using Low Osmolar Contrast (ICD-10-PCS; 2018-11-17)
DX: A41.9 Sepsis, unspecified organism (principal); G92 Toxic encephalopathy; R65.21 Severe sepsis with septic shock; F17.210 Nicotine dependence, cigarettes, uncomplicated; J44.9 Chronic obstructive pulmonary disease, unspecified; B19.20 Unspecified viral hepatitis C without hepatic coma; I95.9 Hypotension, unspecified; E86.0 Dehydration; F41.8 Other specified anxiety disorders; Z87.820 Personal history of traumatic brain injury; E87.6 Hypokalemia; G43.909 Migraine, unspecified, not intractable, without status migrainosus
CPT/HCPCS: 31720; 36415; 51702; 62270; 71045; 77003; 80048; 80053; 80164; 82140; 82330; 82565; 82803; 82945; 82947; 83605; 83735; 83880; 84100; 84145; 84157; 85007; 85025; 85027; 85610; 85730; 87040; 87070; 87205; 87483; 87486; 87529; 87581; 87633; 87798; 88108; 89051; 92610; 93005; 93010; 93306; 94640; 94770; 96365-59; 96366-59; 96368; 96375-59; 96376-59; 99152; 99285-25; C1751; G0480; J0133; J0290; J0696; J1650; J2060; J2310; J3010; J3370; J3480; J7030; J7040; J7060; J7120; J8499